=== PATIENT | male | born 1955 | race Caucasian/White ===

== ENCOUNTER 2021-12-15 23:35 | Emergency (ER) | payer OTHER ==
[~2021-12-15] VITALS: Ht 177.8 cm; Wt 79.4 kg
[2021-12-16] MEDS ORDERED: Prinivil10 MG PO (01:11)
[2021-12-16] MEDS ORDERED: Lovastatin20 MG PO (01:11)
== END 2021-12-16 01:39 | disposition home or self-care (01) ==
LOC: ER 23:35
DX: R59.0 Localized enlarged lymph nodes (principal); I10 Essential (primary) hypertension; E78.5 Hyperlipidemia, unspecified; Z79.899 Other long term (current) drug therapy
CPT/HCPCS: 99283

== ENCOUNTER 2024-07-23 06:38 | Day surgery (SDC) | payer OTHER ==
[~2024-07-23] VITALS: Ht 177.8 cm; Wt 80.0 kg
[~2024-07-23 06:38] MED LIST: C COMPLEX1000 M1 PO; CO Q10100 MG PO; ELIQUIS5 M2 PO; FISH OIL 1,4001 EAC2 PO; Lovastatin20 MG PO; Primidone50 MG PO; Prinivil10 MG PO; Saw Palmetto160 MG PO; Vitamin B-Comp1 EAC7 PO
[2024-07-23] MEDS ORDERED: NS 500 ML IV ONE ×2 (06:52→07:40)
[2024-07-23] MEDS ORDERED: NS 1,000 ML IV ONE (06:52)
[2024-07-23] MEDS ORDERED: Heparin Sodium 1000 Units/ML 10ML MDV ONE ×2 (06:52→07:35)
[2024-07-23 07:15] VITALS: BP 141/79
[2024-07-23] MEDS ORDERED: NS 0 ML IV ONE (07:35)
[2024-07-23] MEDS ORDERED: Midazolam HCl 1MG / ML 2ML Vial ONE ×2 (07:40→08:24)
[2024-07-23] MEDS ORDERED: FentaNYL Citrate 50 MCG/ML 2 ML Injection ONE ×2 (07:40→08:24)
[2024-07-23 08:45] VITALS: BP 121/77
[2024-07-23 09:00] VITALS: BP 128/76
[2024-07-23 09:15] VITALS: BP 123/86
--- NOTE | 2024-07-23 09:50 | NUR ---
DR GRIFFIN IN ROOM DISCUSSING PLAN OF CARE. PT VERBALIZES UNDERSTANDING WRITTEN AND VERBAL INSTRUCTIONS. PT DENIES QUESTIONS OR CONCERNS, VSS. NADN. PT IV DC'D. CATH INTACT. PRESSURE DSG APPLIED. PT DC TO HOME VIA S/O
== END 2024-07-23 09:50 | disposition home or self-care (01) ==
LOC: MHTC 06:38
DX: I82.411 Acute embolism and thrombosis of right femoral vein (principal); I82.531 Chronic embolism and thrombosis of right popliteal vein; Z79.01 Long term (current) use of anticoagulants; Z79.899 Other long term (current) drug therapy
CPT/HCPCS: 36005; 75820; 76937; 99152; C1769; C1894; J1644; J2250; J3010; J7030; J7040; J7050; Q9967